=== PATIENT | male | born 2000 | race Caucasian/White ===

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

== ENCOUNTER → 2020-09-27 | Outpatient (CLI) | payer SELFPAY | LOC: M LABSMTC 10:00 | PROVIDERS: ATTEND Pediatrics | DX: Z20.822 Contact with and (suspected) exposure to COVID-19 (principal) ==

== ENCOUNTER 2020-12-12 09:10 | Emergency (ER) | payer OTHER ==
[~2020-12-12] VITALS: Ht 180.3 cm; Wt 56.2 kg
[2020-12-12] MEDS ORDERED: MUCI600T31 PO (09:16)
[2020-12-12 11:20] VITALS: BP 109/62
== END 2020-12-12 11:25 | disposition home or self-care (01) ==
LOC: M ED 09:10
DX: U07.1 COVID-19 (principal)
CPT/HCPCS: 99283; U0002

== ENCOUNTER 2024-03-12 10:02 | Emergency (ER) | payer OTHER ==
[~2024-03-12] VITALS: Ht 177.8 cm; Wt 60.7 kg
[~2024-03-12 10:02] MED LIST: MUCI600T31 PO
[2024-03-12 11:09] VITALS: BP 109/70; TEMP 97.8; O2SAT 99
== END 2024-03-12 12:32 | disposition home or self-care (01) ==
LOC: M ED 10:02
DX: S99.911A Unspecified injury of right ankle, initial encounter (principal); Y92.019 Unspecified place in single-family (private) house as the place of occurrence of the external cause; Y93.9 Activity, unspecified; Y99.9 Unspecified external cause status